=== PATIENT | male | born 1960 | race American Indian/Alaskan Native ===

== ENCOUNTER 2017-08-01 14:05 | Observation (INO) | payer OTHER ==
[2017-08-01 15:34] LABS: BASO % 0.8 % (0.0-2.0); EOS # 0.1 K/uL (0.0-0.7); EOS % 1.1 % (0.0-4.0); HEMATOCRIT 45.2 % (35.0-51.0); LYMPH # 1.5 K/uL (1.0-4.3); MEAN CELL VOLUME 71.2 fL (80.0-94.0); MEAN CORPUSCULAR HEMOGLOBIN 22.9 pg (27.0-31.0); MEAN CORPUSCULAR HGB CONC 32.1 g/dL (33.0-37.0); MEAN PLATELET VOLUME 8.1 fL (7.2-11.7); MONO # 0.6 K/uL (0.0-0.8); MONO % 9.8 % (0.0-10.0); NRBC % 0.1 % (0.0-2.0); RED CELL DISTRIBUTION WIDTH 14.5 % (11.5-14.5); WHITE BLOOD COUNT 5.7 K/uL (4.8-10.8)
--- NOTE | 2017-08-01 15:52 | C.PDOC ---
History Of Present Illness 56 y/o male, with history of diabetes, presents to the ER complaining of chest pressure and elevated blood pressure.Patient states he woke up with a headache on Jul 20, 2017 and he went to his PCP, Dr. Larsen. He had extremely elevated blood pressure so he called for an ambulance and went to [facility]. Patient states that they did bloodwork and they gave him some medications. The medications made him feel better and he was discharged with oral medications. He states that he did not feel completely better after taking the medications. On Jul 27, 2017, he called for the ambulance and went to [facility] again. They gave him some medications but he still felt a headache and had high blood pressure. He started feeling chest pressure so he decided to come to the ER. Time Seen by Provider: 08/01/17 14:14 Chief Complaint (Nursing): High Blood Pressure History Per: Patient History/Exam Limitations: no limitations Onset/Duration Of Symptoms: Days Current Symptoms Are (Timing): Still Present Associated Symptoms: Chest Pain (chest pressure), Headache Past Medical History Reviewed: Historical Data, Nursing Documentation, Vital Signs Vital Signs: Last Vital Signs Temp 97.5 F L 08/01/17 20:27 Pulse 76 08/01/17 20:59 Resp 20 08/01/17 20:27 BP 183/96 H 08/01/17 20:27 Pulse Ox 98 08/01/17 21:14 - Medical History PMH: HTN Surgical History: No Surg Hx Family History: States: No Known Family Hx - Social History Hx Alcohol Use: No Hx Substance Use: No - Immunization History Hx Tetanus Toxoid Vaccination: No Hx Influenza Vaccination: No Hx Pneumococcal Vaccination: No Review Of Systems Except As Marked, All Systems Reviewed And Found Negative. Cardiovascular: Positive for: Chest Pain (chest pressure) Neurological: Positive for: Headache Physical Exam - Physical Exam Appears: Other (uncomfortable) Skin: Normal Color, Warm Eye(s): bilateral: Normal Inspection Nose: Normal Oral Mucosa: Moist Neck: Supple Chest: Symmetrical Cardiovascular: Rhythm Regular Respiratory: Normal Breath Sounds Neurological/Psych: Oriented x3, Normal Speech, Normal Cognition ED Course And Treatment - Laboratory Results Result Diagrams: 08/01/17 20:02 08/01/17 15:30 ECG Rhythm: Sinus Rhythm, Nonspecific Changes Interpretation Of ECG: LVH Rate From EC O2 Sat by Pulse Oximetry: 98 (RA) Pulse Ox Interpretation: Normal - Radiology CXR Interpretation: Yes: Other - Other Rad No standard instances X-Ray: Interpreted by Me, Viewed By Me Interpretation: PROCEDURE: CHEST RADIOGRAPH, 1 VIEW. HISTORY: uncontrolled HTN, ZAPATA, Chest discomfort. COMPARISON: None available. FINDINGS: LUNGS: Clear. PLEURA: No pneumothorax or pleural fluid seen. CARDIOVASCULAR: Top- normal heart size. Mildly ectatic thoracic aorta. OSSEOUS STRUCTURES: Left humeral head orthopedic anchor. VISUALIZED UPPER ABDOMEN: Normal. OTHER FINDINGS: None. IMPRESSION: No consolidation or jackelyn pulmonary venous congestion. No effusion. Slight prominence of the ascending aorta/unfolding - can be seen with hypertension. No comparison studies available - CT Scan/US No standard instances Other Rad Studies (CT/US): Interpreted By Me CT/US Interpretation: PROCEDURE: CT HEAD WITHOUT CONTRAST. HISTORY: Uncontrolled HTN, ZAPATA. COMPARISON: 07/19/2011. TECHNIQUE: Axial computed tomography images were obtained through the head/brain without intravenous contrast. Radiation dose: Total exam DLP = 792.75 mGy-cm. This CT exam was performed using one or more of the following dose reduction techniques: Automated exposure control, adjustment of the mA and/or kV according to patient size, and/or use of iterative reconstruction technique. FINDINGS: HEMORRHAGE: No intracranial hemorrhage. BRAIN: Guerrero-white matter differentiation is preserved. There is no mass, mass effect or abnormal extra-axial fluid collection. VENTRICLES: The ventricles are normal in size, shape and configuration. CALVARIUM: The skull base and calvarium are normal. PARANASAL SINUSES: Predominantly clear. MASTOID AIR CELLS: Predominantly clear. OTHER FINDINGS: None. IMPRESSION: No acute intracranial abnormality. Progress Note: Patient was treated with Hydralazine IV with improvement. Percocet was given for pain. CT head - neg. case was d/w who accepted patient to [facility] for observation. 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 - Scribe Statement The provider has reviewed the documentation as recorded by the Scribe Summcoreen Malcolm Provider Attestation All medical record entries made by the Dorothea were at my direction and personally dictated by me. I have reviewed the chart and agree that the record accurately reflects my personal performance of the history, physical exam, medical decision making, and the department course for this patient. I have also personally directed, reviewed, and agree with the discharge instructions and disposition. Decision To Admit - Pt Status Changed To: Hospital Disposition Of: Observation - . Bed Request Type: Telemetry Admitting Physician: Meagan Larsen Patient Diagnosis: Hypertensive urgency, Headache, Chest pain
[2017-08-01 15:56] LABS: ALKALINE PHOSPHATASE 55 U/L (38-126); ALT/SGPT 28 U/L (21-72); AST/SGOT 21 U/L (17-59); BLOOD UREA NITROGEN 14 mg/dL (9-20); CALCIUM 8.5 mg/dl (8.6-10.4); CARBON DIOXIDE 26 mmol/L (22-30); CHLORIDE 99 mmol/L (98-107); GFR AFRICAN-AMERICAN > 60; GLUCOSE,RANDOM 132 mg/dL (75-110); POTASSIUM 3.7 mmol/L (3.6-5.2); SODIUM 135 mmol/L (132-148); TOTAL PROTEIN 7.7 g/dL (6.3-8.3)
--- NOTE | 2017-08-01 15:56 | RAD ---
PROCEDURE: CHEST RADIOGRAPH, 1 VIEW HISTORY: uncontrolled HTN, ZAPATA, Chest discomfort COMPARISON: None available. FINDINGS: LUNGS: Clear. PLEURA: No pneumothorax or pleural fluid seen. CARDIOVASCULAR: Top-normal heart size. Mildly ectatic thoracic aorta OSSEOUS STRUCTURES: Left humeral head orthopedic anchor VISUALIZED UPPER ABDOMEN: Normal. OTHER FINDINGS: None. IMPRESSION: No consolidation or jackelyn pulmonary venous congestion. No effusion Slight prominence of the ascending aorta/unfolding -can be seen with hypertension. No comparison studies available
[2017-08-01] MEDS ORDERED: Enalaprilat 2.5 MG/2 ML IV STA (16:18)
--- NOTE | 2017-08-01 16:21 | CT ---
PROCEDURE: CT HEAD WITHOUT CONTRAST. HISTORY: Uncontrolled HTN, ZAPATA COMPARISON: 07/19/2011. TECHNIQUE: Axial computed tomography images were obtained through the head/brain without intravenous contrast. Radiation dose: Total exam DLP = 792.75 mGy-cm. This CT exam was performed using one or more of the following dose reduction techniques: Automated exposure control, adjustment of the mA and/or kV according to patient size, and/or use of iterative reconstruction technique. FINDINGS: HEMORRHAGE: No intracranial hemorrhage. BRAIN: Guerrero-white matter differentiation is preserved. There is no mass, mass effect or abnormal extra-axial fluid collection. VENTRICLES: The ventricles are normal in size, shape and configuration. CALVARIUM: The skull base and calvarium are normal. PARANASAL SINUSES: Predominantly clear. MASTOID AIR CELLS: Predominantly clear. OTHER FINDINGS: None. IMPRESSION: No acute intracranial abnormality.
[2017-08-01] MEDS ORDERED: Enalaprilat 2.5 MG/2 ML ONE (16:41)
[2017-08-01] MEDS ORDERED: Enoxaparin 40 mg Syringe SC ONE (17:05)
--- NOTE | 2017-08-01 17:15 | CP.PCM.PN ---
Subjective - Date & Time of Evaluation Date of Evaluation: 08/01/17 Time of Evaluation: 16:40 - Subjective Subjective: PGY-[address] Larsen 56 year old male with PMHx of HTN, DM, and HLD presents to the ED concerning of uncontrolled high blood pressure, headache and chest pressure. Patient initially found to have headache and uncontrolled SBP of 200 at his PMD 2 weeks ago. Patient was then immediately brought to [facility] ED. Patient was discharged home after treated with medications. However, patient's symptoms returned again last Saturday where he returned to [facility]. Patient was once again discharged home on the same day. Patient woke up with the same symptoms today which prompted him to come to [facility] ED today. Patient states he is compliant with all his medications but he does not remember the names of them. Patient has been adhere to low sugar, low sodium diet for many years. Patient admits to have vision changes and dizziness associated with the headache. He denies having fever, chills, shortness of breath, abdominal pain, nausea, vomiting, or diarrhea. PMD: Dr. Larsen PMHx: HTN, DM, HLD PSHx: none Allergy: NKDA Social Hx: denies tobacco, alcohol and other drug use Family Hx: Hypertension both parents Home meds: see MAR Objective - Vital Signs/Intake and Output Vital Signs (last 24 hours): Temp Pulse Resp BP Pulse Ox 98.0 F 91 H 18 169/87 H 98 08/01/17 15:45 08/01/17 15:45 08/01/17 15:45 08/01/17 16:55 08/01/17 16:33 - Medications Medications: Current Medications Acetaminophen (Tylenol 325mg Tab) 650 mg PO Q6 PRN PRN Reason: Pain, Mild (1-3) Hydralazine HCl (Apresoline) 50 mg PO Q8 [facility] Insulin Aspart (Novolog) 0 unit SC ACHS [facility] PRN Reason: Protocol Losartan Potassium (Cozaar) 100 mg PO DAILY [facility] Metformin HCl (Glucophage) 1,000 mg PO BID [facility] Pantoprazole Sodium (Protonix Ec Tab) 40 mg PO DAILY [facility] Rosuvastatin Calcium (Crestor) 10 mg PO HS [facility] Sitagliptin Phosphate (Januvia) 50 mg PO BID [facility] - Labs Labs: 08/01/17 15:30 08/01/17 15:30 PT 11.2 SECONDS (9.7-12.2) 08/01/17 15:30 INR 1.0 08/01/17 15:30 APTT 30 SECONDS (21-34) 08/01/17 15:30 - Constitutional Appears: Non-toxic, No Acute Distress - Head Exam Head Exam: ATRAUMATIC, NORMOCEPHALIC - Eye Exam Eye Exam: EOMI, Normal appearance - ENT Exam ENT Exam: Mucous Membranes Moist - Neck Exam Neck Exam: Normal Inspection - Respiratory Exam Respiratory Exam: Clear to Ausculation Bilateral, NORMAL BREATHING PATTERN. absent: Respiratory Distress - Cardiovascular Exam Cardiovascular Exam: Tachycardia, +S1, +S2 - GI/Abdominal Exam GI & Abdominal Exam: Soft, Normal Bowel Sounds. absent: Bruit, Tenderness, Hernia - Extremities Exam Extremities Exam: Full ROM, Normal Capillary Refill, Normal Inspection. absent : Joint Swelling, Pedal Edema - Neurological Exam Neurological Exam: Alert, Awake, Oriented x3 - Psychiatric Exam Psychiatric exam: Normal Affect, Normal Mood - Skin Skin Exam: Dry, Intact, Normal Color, Warm Assessment and Plan - Assessment and Plan (Free Text) Assessment: Hypertension Urgency -Telemetry -continue Cozaar 100mg po -continue Hydralazine 50mg po Q8h -Labetalol 20mg IV Q6 PRN -Continue to monitor Chest pain, resolved -AURELIA negative x1, repeats pending -Sinus rhythm @81bpm, LVH and some T-wave inversions, follow up repeat -CXR showed No consolidation or jackelyn pulmonary venous congestion. No effusion. Slight prominence of the ascending aorta/unfolding -can be seen with hypertension. No comparison studies available (see full report) -ASA 81mg Headache -Likely secondary to uncontrolled BP/HTN urgency -CT head-No acute intracranial abnormalities -Tylenol PRN Diabetes -continue Metformin 1000mg po BID -continue Januvia 50mg po BID -ISS -CC diet -Follow up A1C Hyperlipidemia -continue Crestor 10mg -Follow up lipid panel Prophylactic measures -Lovenox -Protonix
[2017-08-01] MEDS ORDERED: Labetalol 25mg/5ml Syringe IVP PRN (17:34)
[2017-08-01] MEDS ORDERED: Oxycodone/Acetaminophen 5/325 mg Tab PO STA (19:16)
[2017-08-01] MEDS ORDERED: Oxycodone/Acetaminophen 5/325 mg Tab ONE (19:26)
[2017-08-01] MEDS ORDERED: Enoxaparin 40 mg Syringe ONE (19:27)
[2017-08-01 20:15] LABS: BASO # 0.1 K/uL (0.0-0.2); BASO % 0.9 % (0.0-2.0); EOS # 0.1 K/uL (0.0-0.7); EOS % 1.8 % (0.0-4.0); HEMATOCRIT 46.2 % (35.0-51.0); LYMPH # 1.9 K/uL (1.0-4.3); LYMPH % 32.1 % (20.0-40.0); MEAN CELL VOLUME 71.1 fL (80.0-94.0); MEAN CORPUSCULAR HEMOGLOBIN 22.5 pg (27.0-31.0); MEAN CORPUSCULAR HGB CONC 31.6 g/dL (33.0-37.0); MONO # 0.6 K/uL (0.0-0.8); MONO % 10.1 % (0.0-10.0); NRBC % 0.1 % (0.0-2.0); RED CELL DISTRIBUTION WIDTH 14.6 % (11.5-14.5)
[2017-08-01 20:18] LABS: CHOLESTEROL 134 mg/dL (0-199)
[2017-08-01 20:29] VITALS: RESP 20
[2017-08-01 23:02] LABS: RBC URINE < 1 /hpf (0-3); TRANSITIONAL EPITHIAL < 1 /hpf (0-3); URINE BACTERIA RARE (<OCC); URINE BILIRUBIN NEGATIVE (NEGATIVE); URINE BLOOD NEGATIVE (NEGATIVE); URINE COLOR Yellow (YELLOW); URINE GLUCOSE (UA) 1+ mg/dL (Normal); URINE KETONE 1+ mg/dL (NEGATIVE); URINE LEUKOCYTE ESTERASE NEG Leu/uL (Negative); URINE PROTEIN NEGATIVE (NEGATIVE); URINE UROBILINOGEN NORMAL mg/dL (0.2-1.0); WBC URINE 1 /hpf (0-5)
[2017-08-01] MEDS: (Novolog) Insulin Aspart, Recombinant 100 u/ml 10 ml vial SC SCH (23:26)
[2017-08-02 01:36] VITALS: O2SAT 97
[2017-08-02 04:21] LABS: ALB/GLOB RATIO 1.4 (1.0-2.1); ALKALINE PHOSPHATASE 51 U/L (38-126); ALT/SGPT 18 U/L (21-72); AST/SGOT 21 U/L (17-59); BILIRUBIN,TOTAL 1.1 mg/dL (0.2-1.3); BLOOD UREA NITROGEN 15 mg/dL (9-20); CALCIUM 8.3 mg/dl (8.6-10.4); CARBON DIOXIDE 25 mmol/L (22-30); CHLORIDE 103 mmol/L (98-107); GFR AFRICAN-AMERICAN > 60; GLUCOSE,RANDOM 125 mg/dL (75-110); POTASSIUM 3.8 mmol/L (3.6-5.2); SODIUM 136 mmol/L (132-148)
[2017-08-02] MEDS: (Novolog) Insulin Aspart, Recombinant 100 u/ml 10 ml vial SC SCH ×2 (07:53→12:07)
[2017-08-02 08:27] VITALS: BP 143/79; PULSE 91; TEMP 98.2
--- NOTE | 2017-08-02 09:44 | CP.PCM.PN ---
Subjective - Date & Time of Evaluation Date of Evaluation: 08/02/17 Time of Evaluation: 07:25 - Subjective Subjective: PGY-[address] Larsen Patient seen and examined at bedside. No acute events overnight. Patient reports his headache and chest discomfort resolved. He denies having vision changes, photosensitivity, fever, chills, shortness of breath, chest pain, abdominal pain, or urinary symptoms. Objective - Vital Signs/Intake and Output Vital Signs (last 24 hours): Temp Pulse Resp BP Pulse Ox 98.2 F 91 H 20 143/79 97 08/02/17 07:00 08/02/17 07:00 08/02/17 07:00 08/02/17 07:00 08/02/17 07:00 Intake and Output: 08/02/17 08/02/17 06:59 18:59 Output Total 200 Balance -200 - Medications Medications: Current Medications Acetaminophen (Tylenol 325mg Tab) 650 mg PO Q6 PRN PRN Reason: Pain, Mild (1-3) Last Admin: 08/02/17 08:50 Dose: 650 mg Aspirin (Aspirin Chewable) 81 mg PO DAILY [facility] Enoxaparin Sodium (Lovenox) 40 mg SC DAILY [facility] Hydralazine HCl (Apresoline) 50 mg PO Q8 [facility] Last Admin: 08/02/17 05:36 Dose: 50 mg Insulin Aspart (Novolog) 0 unit SC ACHS [facility] PRN Reason: Protocol Last Admin: 08/02/17 07:53 Dose: Not Given Labetalol HCl (Trandate) 20 mg IVP Q6 PRN PRN Reason: Systolic Blood Pressure Losartan Potassium (Cozaar) 100 mg PO DAILY [facility] Metformin HCl (Glucophage) 1,000 mg PO BID [facility] Last Admin: 08/01/17 19:31 Dose: 1,000 mg Pantoprazole Sodium (Protonix Ec Tab) 40 mg PO DAILY [facility] Pneumococcal Polyvalent Vaccine (Pneumovax 23 Vaccine) 0.5 ml IM .ONCE ONE Stop: 08/03/17 10:01 Rosuvastatin Calcium (Crestor) 10 mg PO HS [facility] Last Admin: 08/01/17 21:24 Dose: 10 mg Sitagliptin Phosphate (Januvia) 50 mg PO BID [facility] Last Admin: 08/01/17 19:31 Dose: 50 mg - Labs Labs: 08/01/17 20:02 08/02/17 03:42 PT 11.2 SECONDS (9.7-12.2) 08/01/17 15:30 INR 1.0 08/01/17 15:30 APTT 30 SECONDS (21-34) 08/01/17 15:30 - Constitutional Appears: Non-toxic, No Acute Distress - Head Exam Head Exam: ATRAUMATIC, NORMOCEPHALIC - Eye Exam Eye Exam: Normal appearance - ENT Exam ENT Exam: Mucous Membranes Moist - Neck Exam Neck Exam: Normal Inspection - Respiratory Exam Respiratory Exam: Clear to Ausculation Bilateral, NORMAL BREATHING PATTERN. absent: Respiratory Distress - Cardiovascular Exam Cardiovascular Exam: REGULAR RHYTHM, +S1, +S2. absent: Murmur - GI/Abdominal Exam GI & Abdominal Exam: Soft, Normal Bowel Sounds - Extremities Exam Extremities Exam: Full ROM, Normal Capillary Refill, Normal Inspection. absent : Joint Swelling, Pedal Edema - Neurological Exam Neurological Exam: Alert, Awake, Oriented x3 - Psychiatric Exam Psychiatric exam: Normal Affect, Normal Mood - Skin Skin Exam: Dry, Normal Color, Warm Assessment and Plan - Assessment and Plan (Free Text) Assessment: Hypertension Urgency -Stable at SBP 140s overnight -Telemetry -continue Cozaar 100mg po -continue Hydralazine 50mg po Q8h -Labetalol 20mg IV Q6 PRN -Start Norvasc 5mg po on discharge -Patient educated on low salt diet, exercise Chest pain, resolved -AURELIA negative x3 -No change in repeat EKG -CXR showed No consolidation or jackelyn pulmonary venous congestion. No effusion. Slight prominence of the ascending aorta/unfolding -can be seen with hypertension. No comparison studies available (see full report) -ASA 81mg Headache, resolved -Likely secondary to uncontrolled BP/HTN urgency -CT head-No acute intracranial abnormalities -Tylenol PRN Diabetes -continue Metformin 1000mg po BID -continue Januvia 50mg po BID -ISS -CC diet -Educated patient on better glycemic control and lifestyle modifications -A1C 10.5 patient may need to start insulin as outpatient Hyperlipidemia -continue Crestor 10mg -Lpid panel unremarkable Prophylactic measures -Lovenox -Protonix Patient to be discharge home Management per Dr. Larsen
[2017-08-02] MEDS ORDERED: Enoxaparin 40 mg Syringe SC SCH (10:00)
[2017-08-02] MEDS ORDERED: Pantoprazole 40 mg EC Tab PO SCH (10:00)
[2017-08-02] MEDS: Influenza Vaccine 60 mcg/0.5 mL SYR (4YR UP) IM ONE ×2 (12:31→13:08)
[2017-08-02] MEDS ORDERED: Pneumococcal 23-Valent Vaccine IM ONE (12:37)
--- NOTE | 2017-08-02 18:35 | CARD ---
APPROVED REPORT EKG Measurement Heart [id number] CT 154P30 [id number] <Conclusion> Normal sinus rhythm Voltage criteria for left ventricular hypertrophy Cannot rule out Septal infarct, age undetermined Anterior ST elevation, Pericarditis vs early repolarization vs Injury pattern Abnormal ECG
[2017-08-03] MEDS ORDERED: Pneumococcal 23-Valent Vaccine IM ONE (10:00)
== END 2017-08-02 14:05 | disposition home or self-care (01) ==
LOC: C.ER 14:05 → C.9E 17:07 → C.6T 19:12
PROVIDERS: ADMIT Internal Medicine Pulmonary Disease; ATTEND Internal Medicine Pulmonary Disease
DX: I10 Essential (primary) hypertension (principal); I16.0 Hypertensive urgency; R51 Headache; R07.89 Other chest pain; E11.9 Type 2 diabetes mellitus without complications; E78.5 Hyperlipidemia, unspecified
CPT/HCPCS: 36415; 70450; 71010; 80053; 80061; 81001; 82550; 82553; 82948; 83036; 84484; 85025; 85610; 85730; 90471; 90674; 93005; 96372; 96374; 99285; G0378; J0360; J1650

== ENCOUNTER 2017-11-17 03:49 | Emergency (ER) | payer OTHER ==
[2017-11-17] MEDS ORDERED: Labetalol 25mg/5ml Syringe IVP STA (04:27)
--- NOTE | 2017-11-17 04:27 | C.PDOC ---
History Of Present Illness 57 year old male with a PMHx of hypertension presents to the ED via EMS after he developed shakes and chills at home this morning. Patient then noticed his blood pressure was elevated. He did not take his morning medications yet. Patient also complains of a headache. No nausea, vomiting, dizziness, visual changes, or other complaints. Time Seen by Provider: 11/17/17 04:13 Chief Complaint (Nursing): Headache History Per: Patient History/Exam Limitations: no limitations Onset/Duration Of Symptoms: Hrs Current Symptoms Are (Timing): Still Present Past Medical History Reviewed: Historical Data, Nursing Documentation, Vital Signs Vital Signs: Last Vital Signs Temp 99.9 F H 11/17/17 03:55 Pulse 101 H 11/17/17 05:07 Resp 20 11/17/17 05:07 BP 168/84 H 11/17/17 05:07 Pulse Ox 97 11/17/17 05:56 - Medical History PMH: HTN, Hypercholesterolemia Denies: Chronic Kidney Disease Other Surgeries: Left shoulder surgery Family History: States: No Known Family Hx - Social History Hx Tobacco Use: No Hx Alcohol Use: No Hx Substance Use: No - Immunization History Hx Tetanus Toxoid Vaccination: No Hx Influenza Vaccination: No Hx Pneumococcal Vaccination: No Review Of Systems Except As Marked, All Systems Reviewed And Found Negative. Constitutional: Positive for: Chills (and shakes) Eyes: Negative for: Vision Change Gastrointestinal: Negative for: Nausea, Vomiting Neurological: Positive for: Headache. Negative for: Weakness, Numbness, Dizziness Physical Exam - Physical Exam Appears: No Acute Distress, Other (Black male, Anxious appearing, Afebrile) Skin: Warm, Dry Head: Atraumatic, Normacephalic Eye(s): bilateral: Normal Inspection, PERRL, EOMI Nose: Normal Oral Mucosa: Moist Neck: Normal ROM, No Midline Cervical Tenderness, No Paracervical Tenderness, Supple Chest: Symmetrical Cardiovascular: Rhythm Regular, No Murmur Respiratory: Normal Breath Sounds, No Accessory Muscle Use, No Rhonchi, No Wheezing Gastrointestinal/Abdominal: Soft, No Tenderness, No Distention Back: Normal Inspection, No Vertebral Tenderness Extremity: Bilateral: Atraumatic, Normal Color And Temperature, Normal ROM Neurological/Psych: Oriented x3, Normal Speech, Normal Cranial Nerves, Normal Motor, Normal Sensation, No Other (focal deficits) Gait: Steady ED Course And Treatment - Laboratory Results Result Diagrams: 11/17/17 04:41 11/17/17 04:41 Lab Interpretation: Normal (urinalysis neg.) ECG: Interpreted By Me ECG Rhythm: Sinus Rhythm, Sinus Tachycardia ECG Interpretation: Abnormal Rate From EC O2 Sat by Pulse Oximetry: 97 (NC) Pulse Ox Interpretation: Normal - Radiology CXR: Interpreted by Me CXR Interpretation: Yes: No Acute Disease - CT Scan/US CT Head Other Rad Studies (CT/US): Read By Radiologist, Radiology Report Reviewed CT/US Interpretation: IMPRESSION: No evidence of an acute intracranial hemorrhage, midline shift or mass effect is identified. Thank you for allowing us to participate in the care of your patient. Dictated and Authenticated by: Yamileth Schuster MD. 11/17/2017 5:28 AM Eastern Time ([place] & [place]) Reevaluation Time: 06:19 Reassessment Condition: Improved Medical Decision Making Medical Decision Making: Time: 4:27 Initial Plan: * EKG * Chest x-ray * Labs * Labetalol 20 mg IV * Tylenol 975 mg PO * Amlodipine 10 mg PO * CT Head w/o contrast early AM HTN, improved w HTN meds no fevers, no shaking/rigors noted ? anxiety Disposition Doctor Will See Patient In The: Office Counseled Patient/Family Regarding: Studies Performed, Diagnosis - Disposition Disposition: HOME/ ROUTINE Disposition Time: 06:20 Condition: GOOD Forms: [facility] (Turkmen) - Clinical Impression Clinical Impression: Hypertension - Scribe Statement The provider has reviewed the documentation as recorded by the Dorothea Bal Provider Attestation: All medical record entries made by the Dorothea were at my direction and personally dictated by me. I have reviewed the chart and agree that the record accurately reflects my personal performance of the history, physical exam, medical decision making, and the department course for this patient. I have also personally directed, reviewed, and agree with the discharge instructions and disposition.
[2017-11-17] MEDS ORDERED: Labetalol 25mg/5ml Syringe ONE (04:35)
[2017-11-17 04:44] LABS: BASO % 0.4 % (0.0-2.0); EOS % 0.1 % (0.0-4.0); HEMOGLOBIN 13.1 g/dL (12.0-18.0); LYMPH # 0.8 K/uL (1.0-4.3); MEAN CORPUSCULAR HEMOGLOBIN 22.7 pg (27.0-31.0); MEAN CORPUSCULAR HGB CONC 31.9 g/dL (33.0-37.0); MEAN PLATELET VOLUME 8.5 fL (7.2-11.7); MONO # 0.5 K/uL (0.0-0.8); MONO % 8.3 % (0.0-10.0); NEUT # 4.5 K/uL (1.8-7.0); NEUT % 77.2 % (50.0-75.0); NRBC % 0.1 % (0.0-2.0); RBC 5.77 Mil/uL (4.40-5.90); RED CELL DISTRIBUTION WIDTH 15.3 % (11.5-14.5); WHITE BLOOD COUNT 5.9 K/uL (4.8-10.8)
[2017-11-17 04:48] LABS: INR 1.1; PROTHROMBIN TIME 11.8 SECONDS (9.7-12.2)
[2017-11-17 05:04] LABS: LDL CHOLESTEROL 83 mg/dL (0-129)
[2017-11-17 05:08] VITALS: RESP 20
--- NOTE | 2017-11-17 05:28 | CT ---
EXAM: CT Head Without Intravenous Contrast CLINICAL HISTORY: 57 years old, male; Signs and symptoms; Other: Shaking; Additional info: HTN, shaking, hypertensive urgency TECHNIQUE: Axial computed tomography images of the head/brain without intravenous contrast. All CT scans at this facility use one or more dose reduction techniques, viz.: automated exposure control; ma/kV adjustment per patient size (including targeted exams where dose is matched to indication; i.e. head); or iterative reconstruction technique. 355 images are submitted.Sagittal , axial and coronal MPR reformatted images are submitted. COMPARISON: No relevant prior studies available. FINDINGS: Brain: Unremarkable. No hemorrhage. No significant white matter disease. No edema. Ventricles: Unremarkable. No ventriculomegaly. Bones/joints: Unremarkable. No acute fracture. Soft tissues: Unremarkable. Sinuses: Unremarkable. No acute sinusitis. Mastoid air cells: Unremarkable. No mastoid effusion. Orbits: The globe and lens are intact. IMPRESSION: No evidence of an acute intracranial hemorrhage, midline shift or mass effect is identified.
[2017-11-17 05:40] LABS: ALB/GLOB RATIO 1.1 (1.0-2.1); ALBUMIN 3.8 g/dL (3.5-5.0); ALT/SGPT 89 U/L (21-72); AST/SGOT 91 U/L (17-59); BLOOD UREA NITROGEN 17 mg/dL (9-20); CALCIUM 8.9 mg/dl (8.6-10.4); GFR AFRICAN-AMERICAN > 60; GFR NON-AFRICAN AMERICAN > 60; HDL CHOLESTEROL 41 mg/dL (30-70)
[2017-11-17 05:56] LABS: SQUAMOUS EPITHIAL < 1 /hpf (0-5); URINE BILIRUBIN NEGATIVE (NEGATIVE); URINE BLOOD 1+ (NEGATIVE); URINE CLARITY Clear (Clear); URINE COLOR Yellow (YELLOW); URINE GLUCOSE (UA) 2+ mg/dL (Normal); URINE LEUKOCYTE ESTERASE NEG Leu/uL (Negative); URINE PROTEIN 1+ mg/dL (NEGATIVE); URINE UROBILINOGEN NORMAL mg/dL (0.2-1.0)
[2017-11-17 06:34] VITALS: BP 164/77; PULSE 99; TEMP 98.6; O2SAT 98
--- NOTE | 2017-11-17 08:08 | RAD ---
Chest x-ray single frontal view History: Fever. Comparison: 08/01/2017 Findings: Mild venous congestion. Right hilar prominence. Biapical pleural thickening with upper lobe granulomatous changes. Tortuous ectatic aorta. Degenerative changes in the spine. Suture anchors in the left proximal humerus. Impression: Mild venous congestion. Right hilar prominence. Biapical pleural thickening with upper lobe granulomatous changes. Tortuous ectatic aorta. Degenerative changes in the spine. Suture anchors in the left proximal humerus.
--- NOTE | 2017-11-19 19:31 | CARD ---
APPROVED REPORT EKG Measurement Heart [id number] [id number] <Conclusion> Sinus tachycardia Otherwise normal ECG
== END 2017-11-17 06:34 | disposition home or self-care (01) ==
LOC: C.ER 03:49
DX: I10 Essential (primary) hypertension (principal); E78.00 Pure hypercholesterolemia, unspecified

== ENCOUNTER 2018-04-01 15:30 | Emergency (ER) | payer OTHER ==
[2018-04-01 15:51] VITALS: O2SAT 98
[2018-04-01] MEDS ORDERED: Sodium Chloride 0.9% 1,000 ML IV ONE (17:29)
--- NOTE | 2018-04-01 17:33 | C.PDOC ---
History Of Present Illness 57 year old male patient with hx of DM, HTN and HLD presents to the ER with c/o left leg pain for x2 weeks. Patient reports pain started after he came back from his trip to [facility] and has gotten worse every day. Patient denies fever, chills and trauma. Chief Complaint (Nursing): Lower Extremity Problem/Injury History Per: Patient History/Exam Limitations: no limitations Onset/Duration Of Symptoms: Days (x2 weeks) Current Symptoms Are (Timing): Worse Past Medical History Reviewed: Historical Data, Nursing Documentation, Vital Signs Vital Signs: Last Vital Signs Temp 98.8 F 04/01/18 18:24 Pulse 78 04/01/18 18:24 Resp 16 04/01/18 18:24 BP 135/78 04/01/18 18:24 Pulse Ox 98 04/04/18 12:21 - Medical History PMH: HTN, Hypercholesterolemia Family History: States: No Known Family Hx - Social History Hx Tobacco Use: No Hx Alcohol Use: No Hx Substance Use: No - Immunization History Hx Tetanus Toxoid Vaccination: No Hx Influenza Vaccination: No Hx Pneumococcal Vaccination: No Review Of Systems Except As Marked, All Systems Reviewed And Found Negative. Constitutional: Negative for: Fever, Chills, Other (trauma) Musculoskeletal: Positive for: Leg Pain (left) Physical Exam - Physical Exam Appears: Well, Non-toxic, No Acute Distress Skin: Normal Color, Warm, Dry Head: Atraumatic, Normacephalic Eye(s): bilateral: Normal Inspection Oral Mucosa: Moist Throat: Normal Neck: Normal ROM, Supple Chest: Symmetrical, No Deformity Cardiovascular: Rhythm Regular Respiratory: Normal Breath Sounds Gastrointestinal/Abdominal: Soft, No Tenderness Extremity: Normal ROM (x4), Tenderness (Distal of thigh along knee ), Calf Tenderness (medial ), Capillary Refill (<2 sec), No Deformity, Other (hardening of medial aspect of thigh) Pulses: Left Dorsalis Pedis: Normal, Right Dorsalis Pedis: Normal Neurological/Psych: Oriented x3, Normal Speech, Normal Motor, Normal Sensation Gait: Steady ED Course And Treatment - Laboratory Results Result Diagrams: 04/01/18 17:59 04/01/18 17:59 O2 Sat by Pulse Oximetry: 98 (RA) Pulse Ox Interpretation: Normal - Other Rad CXR X-Ray: Read By Radiologist Interpretation: Accession No. : [id number]. Patient Name / ID : JEAN MCKEON / [id number]. Exam Date : 11/17/2017 05:24:57 ( Approved ). Study Comment : Sex / Age : M / 57Y. Creator : Bakari Manley. Dictator : Neo Miller MD. Industrial Relations Representative : Benefits Representative : Neo Miller MD. Approver2 : Report Date : 11/17/2017 05:31:11. My Comment : . Chest x-ray single frontal view. History: Fever. Comparison: 08/01/2017. Findings: Mild venous congestion. Right hilar prominence. Biapical pleural thickening with upper lobe granulomatous changes. Tortuous ectatic aorta. Degenerative changes in the spine. Suture anchors in the left proximal humerus. Impression: Mild venous congestion. Right hilar prominence. Biapical pleural thickening with upper lobe granulomatous changes. Tortuous ectatic aorta. Degenerative changes in the spine. Suture anchors in the left proximal humerus. - CT Scan/US Head CT Other Rad Studies (CT/US): Read By Radiologist, Radiology Report Reviewed CT/US Interpretation: Accession No. : [id number]. Patient Name / ID : JEAN MCKEON / [id number]. Exam Date : 11/17/2017 05:00:23 ( Approved ). Study Comment : Sex / Age : M / 57Y. Creator : GIL THOMASON. Dictator : Industrial Relations Representative : Benefits Representative : GIL THOMASON. Approver2 : Report Date : 11/17 05:28:00. My Comment : . [facility]. [facility] Division of Radiology. [address] [facility] [address]. Tel. no. [phone]. . . Patient Name: LINDA PENA . Pt. Address: [address] [place] [address]. Rec #: [id number]. [place] [address]: Abraham Reich MD Pt Order Location: [facility] : 1960 Male Age: 57 Order #: [id number]. Reason for exam: HTN, shaking, hypertensive urgency. . . . . . CT Scan. . . HEAD W/O CONTRAST Exam Date: 11/17/17. . This imaging exam was performed at [facility]. EXAM: CT Head Without Intravenous Contrast. . CLINICAL HISTORY: 57 years old, male; Signs and symptoms; Other: Shaking; Additional info: HTN,. shaking, hypertensive urgency. . TECHNIQUE: Axial computed tomography images of the head/brain without intravenous. contrast. All CT scans at this facility use one or more dose reduction. techniques, viz.: automated exposure control; ma/ kV adjustment per patient size. (including targeted exams where dose is matched to indication; i.e. head); or. iterative reconstruction technique. 355 images are submitted.Sagittal , axial. and coronal MPR reformatted images are submitted. . COMPARISON: No relevant prior studies available. . FINDINGS: Brain: Unremarkable. No hemorrhage. No significant white matter disease. No edema. Ventricles: Unremarkable. No ventriculomegaly. Bones/ joints: Unremarkable. No acute fracture. Soft tissues: Unremarkable. Sinuses: Unremarkable. No acute sinusitis. Mastoid air cells: Unremarkable. No mastoid effusion. Orbits: The globe and lens are intact. . IMPRESSION: No evidence of an acute intracranial hemorrhage, midline shift or mass effect. is identified. . Dictated By: GIL THOMASON. Dictated Date/Time: 11/17/17527. Signed By: GIL THOMASON MD. Date Signed: 11/17/17527. Transcribed By: [facility]. Transcribe Date/Time: 11/17/1728. LARON/ELI Medical Decision Making Medical Decision Making: Impression: left leg pain r/o DVT Plans: -- blood work -- IV fluids -- Toradol -- Venous duplex scan Reassess: Patient is resting comfortably. Tolerating medication. Results was discussed with patient. Patient will be discharged today and instructed to come back tomorrow morning to the ER for further testing. Disposition - Disposition Disposition: HOME/ ROUTINE Disposition Time: 19:00 Condition: GOOD Additional Instructions: Please return to the ED tomorrow morning for a Lower Extremity Duplex. Take Motrin for pain as directed. Prescriptions: Ibuprofen [Motrin] 600 mg PO Q6 #20 tab Instructions: Deep Vein Thrombosis (Blood Clots in the Legs) Forms: [facility] (Estonian) - Clinical Impression Clinical Impression: Deep venous thrombosis of lower extremity, DVT (deep venous thrombosis) - PA / DYNAMITE CARTRIDGE CRIMPER / Resident Statement / has reviewed & agrees with the documentation as recorded. - Scribe Statement The provider has reviewed the documentation as recorded by the Dorothea Jean Do All medical record entries made by the Mannibheriberto were at my direction and personally dictated by me. I have reviewed the chart and agree that the record accurately reflects my personal performance of the history, physical exam, medical decision making, and the department course for this patient. I have also personally directed, reviewed, and agree with the discharge instructions and disposition.
[2018-04-01] MEDS ORDERED: Sodium Chloride 0.9% 1,000 ML ONE (17:59)
[2018-04-01 18:02] LABS: BASO # 0.1 K/uL (0.0-0.2); BASO % 0.7 % (0.0-2.0); EOS # 0.1 K/uL (0.0-0.7); EOS % 1.1 % (0.0-4.0); HEMOGLOBIN 12.8 g/dL (12.0-18.0); LYMPH # 1.6 K/uL (1.0-4.3); LYMPH % 12.4 % (20.0-40.0); MEAN CELL VOLUME 69.5 fL (80.0-94.0); MEAN CORPUSCULAR HEMOGLOBIN 22.7 pg (27.0-31.0); MEAN CORPUSCULAR HGB CONC 32.7 g/dL (33.0-37.0); MEAN PLATELET VOLUME 7.4 fL (7.2-11.7); MONO % 7.6 % (0.0-10.0); NEUT # 9.9 K/uL (1.8-7.0); NEUT % 78.2 % (50.0-75.0); RBC 5.65 Mil/uL (4.40-5.90); RED CELL DISTRIBUTION WIDTH 14.2 % (11.5-14.5)
[2018-04-01 18:14] LABS: WHITE BLOOD COUNT 12.7 K/uL (4.8-10.8)
[2018-04-01 18:18] LABS: ALB/GLOB RATIO 1.2 (1.0-2.1); ALBUMIN 4.1 g/dL (3.5-5.0); ALT/SGPT 55 U/L (21-72); AST/SGOT 57 U/L (17-59); BLOOD UREA NITROGEN 14 mg/dL (9-20); CALCIUM 9.4 mg/dl (8.6-10.4); GFR NON-AFRICAN AMERICAN > 60
[2018-04-01 18:26] VITALS: BP 135/78; PULSE 78; RESP 16; TEMP 98.8
[2018-04-01] MEDS ORDERED: Enoxaparin 80 mg Syringe SC STA (18:35)
[2018-04-01] MEDS ORDERED: Enoxaparin 80 mg Syringe ONE (18:49)
== END 2018-04-01 19:06 | disposition home or self-care (01) ==
LOC: C.ER 15:30
DX: I82.409 Acute embolism and thrombosis of unspecified deep veins of unspecified lower extremity (principal); I10 Essential (primary) hypertension; E78.00 Pure hypercholesterolemia, unspecified
CPT/HCPCS: 80053; 85025; 96361; 96372; 96374; 99284; J1650; J1885; J7030

== ENCOUNTER 2018-04-02 10:50 | Observation (INO) | payer OTHER ==
[2018-04-02] MEDS ORDERED: Enoxaparin 40 mg Syringe SC STA (13:01)
[2018-04-02 13:07] LABS: PH,URINE 6.5 (5.0-8.0); SQUAMOUS EPITHIAL < 1 /hpf (0-5); URINE BILIRUBIN NEGATIVE (NEGATIVE); URINE BLOOD NEGATIVE (NEGATIVE); URINE CLARITY Clear (Clear); URINE COLOR YELLOW (YELLOW); URINE GLUCOSE (UA) 3+ mg/dL (Normal); URINE LEUKOCYTE ESTERASE NEGATIVE Leu/uL (Negative); URINE PROTEIN NEGATIVE (NEGATIVE); URINE UROBILINOGEN 0.2 mg/dL (0.2-1.0)
[2018-04-02] MEDS ORDERED: Sodium Chloride 0.9% 1,000 ML IV ONE (13:10)
[2018-04-02] MEDS ORDERED: Sodium Chloride 0.9% 1,000 ML ONE (13:32)
[2018-04-02] MEDS ORDERED: Enoxaparin 80 mg Syringe ONE (13:32)
[2018-04-02 13:36] LABS: BASO # 0.1 K/uL (0.0-0.2); BASO % 0.7 % (0.0-2.0); EOS # 0.1 K/uL (0.0-0.7); EOS % 1.3 % (0.0-4.0); HEMOGLOBIN 12.5 g/dL (12.0-18.0); LYMPH # 1.5 K/uL (1.0-4.3); LYMPH % 17.4 % (20.0-40.0); MEAN CELL VOLUME 69.8 fL (80.0-94.0); MEAN CORPUSCULAR HEMOGLOBIN 22.4 pg (27.0-31.0); MEAN PLATELET VOLUME 8.1 fL (7.2-11.7); MONO # 0.6 K/uL (0.0-0.8); MONO % 7.1 % (0.0-10.0); NEUT # 6.5 K/uL (1.8-7.0); NEUT % 73.5 % (50.0-75.0); RBC 5.58 Mil/uL (4.40-5.90); RED CELL DISTRIBUTION WIDTH 14.3 % (11.5-14.5); WHITE BLOOD COUNT 8.9 K/uL (4.8-10.8)
--- NOTE | 2018-04-02 13:37 | C.PDOC ---
History Of Present Illness 57 year old male with PMHx of DM, HTN, and hypercholesterolemia, presents to the ED with complaints of left leg pain x 2 weeks. States he noticed the symptoms during recent trip to [facility]. When he returned home on 03/25/18, patient noticed the swelling and pain increased. He notes symptoms seem worse with weight bearing. Notes mild improvement after the medication they gave me last night. He denies prior history of blood clots. Otherwise patient denies any chest pain, trauma, change in sensation, fever or SOB. Time Seen by Provider: 04/02/18 11:21 Chief Complaint (Nursing): Medical Clearance History Per: Patient History/Exam Limitations: no limitations Onset/Duration Of Symptoms: Days Current Symptoms Are (Timing): Still Present Reports Recently: Seen In ED Past Medical History Reviewed: Historical Data, Nursing Documentation, Vital Signs Vital Signs: Last Vital Signs Temp 97.8 F 04/02/18 15:30 Pulse 73 04/02/18 15:30 Resp 20 04/02/18 15:30 BP 143/83 04/02/18 15:30 Pulse Ox 98 04/02/18 15:30 - Medical History PMH: Diabetes (type II), HTN, Hypercholesterolemia Denies: Chronic Kidney Disease Other Surgeries: Left shoulder surgery Family History: States: No Known Family Hx - Social History Hx Tobacco Use: No Hx Alcohol Use: No Hx Substance Use: No - Immunization History Hx Tetanus Toxoid Vaccination: No Hx Influenza Vaccination: No Hx Pneumococcal Vaccination: No Review Of Systems Except As Marked, All Systems Reviewed And Found Negative. Constitutional: Negative for: Fever Cardiovascular: Negative for: Chest Pain, Palpitations Respiratory: Negative for: Cough, Shortness of Breath Musculoskeletal: Positive for: Leg Pain (left calf pain and swelling). Negative for: Foot Pain, Other (knee pain) Neurological: Negative for: Weakness, Numbness, Incoordination Physical Exam - Physical Exam Appears: Non-toxic, No Acute Distress Skin: Warm, Dry Head: Atraumatic, Normacephalic Eye(s): bilateral: Normal Inspection, EOMI Nose: Normal Oral Mucosa: Moist Neck: Normal ROM, Supple Chest: Symmetrical Cardiovascular: Rhythm Regular Respiratory: Normal Breath Sounds, No Rales, No Rhonchi, No Wheezing Gastrointestinal/Abdominal: Soft, No Tenderness Extremity: Normal ROM, Tenderness (to medial aspect of left thigh and calf tenderness), Swelling (to left calf), Other (medial aspect of left thigh appears indurated) Extremity: Bilateral: Normal Color And Temperature Pulses: Left Dorsalis Pedis: Normal, Right Dorsalis Pedis: Normal Neurological/Psych: Oriented x3, Normal Speech, Normal Motor, Normal Sensation ED Course And Treatment - Laboratory Results Result Diagrams: 04/02/18 13:25 04/02/18 13:25 O2 Sat by Pulse Oximetry: 99 (RA) Pulse Ox Interpretation: Normal - CT Scan/US Doppler US Other Rad Studies (CT/US): Read By Radiologist, Radiology Report Reviewed CT/US Interpretation: (+) popliteal DVT to left lower extremity Progress Note: Doppler US ordered to evaluate bilateral lower extremities for DVT. Records reviewed, patient was seen here last night and treated with Lovenox. Ultrasound is positive for DVT in popliteal vein. Ordered 80mg SC Lovenox and IV fluids. Blood work and urine sent. - Physician Consult Information Time Consulting Physician Contacted: 13:00 Physician Contacted: Meagan Larsen Outcome Of Conversation: Agrees with management and accepts patient for admission Disposition Counseled Patient/Family Regarding: Studies Performed, Diagnosis - Disposition Disposition: HOSPITALIZED Disposition Time: 13:04 Condition: STABLE - POA Present On Arrival: Deep Vein Thrombosis / PE - Clinical Impression Clinical Impression: DVT (deep venous thrombosis) - PA / MATERIAL CONTROL CLERK / Resident Statement MD/DO has reviewed & agrees with the documentation as recorded. - Scribe Statement The provider has reviewed the documentation as recorded by the Scribe (Ashlee Bal) All medical record entries made by the Scribe were at my direction and personally dictated by me. I have reviewed the chart and agree that the record accurately reflects my personal performance of the history, physical exam, medical decision making, and the department course for this patient. I have also personally directed, reviewed, and agree with the discharge instructions and disposition.
[2018-04-02 13:43] LABS: INR 1.1; PROTHROMBIN TIME 11.9 SECONDS (9.7-12.2)
[2018-04-02 13:51] LABS: ALB/GLOB RATIO 1.1 (1.0-2.1); ALBUMIN 3.8 g/dL (3.5-5.0); ALT/SGPT 55 U/L (21-72); AST/SGOT 38 U/L (17-59); BLOOD UREA NITROGEN 11 mg/dL (9-20); CALCIUM 9.1 mg/dl (8.6-10.4); GFR NON-AFRICAN AMERICAN > 60
--- NOTE | 2018-04-02 14:08 | VASCLAB ---
Date of service: 04/02/2018 PROCEDURE: Lower Extremity Venous Duplex Exam. HISTORY: pain PRIORS: None. TECHNIQUE: Bilateral common femoral, femoral, popliteal and posterior tibial, peroneal and great saphenous veins were evaluated. Flow was assessed with color Doppler, compressibility, assessment of phasic flow and augmentation response. Report prepared by JACQUELYN Mead, RVT FINDINGS: RIGHT: 1. Common Femoral Vein: 1.1. Compressibility - Fully compressible: Thrombus - None : Flow - Phasic: Augmentation -Normal: Reflux - None. 2. Femoral Vein: 2.1. Compressibility - Fully compressible: Thrombus - None : Flow - Phasic: Augmentation -Normal: Reflux - None. 3. Popliteal Vein: 3.1. Compressibility - Fully compressible: Thrombus - None : Flow - Phasic: Augmentation -Normal: Reflux - None. 4. Posterior Tibial Vein: 4.1. Compressibility - Fully compressible: Thrombus - None: Flow - Phasic: Augmentation -Normal: Reflux - None. 5. Peroneal Vein: 5.1. Compressibility - Fully compressible: Thrombus - None: Flow - Phasic: Augmentation -Normal: Reflux - None. 6. Great Saphenous Vein: 6.1. Compressibility - Fully compressible: Thrombus - None: Flow - Phasic: Augmentation - Normal: Reflux - None. LEFT: 1. Common Femoral Vein: 1.1. Compressibility - Fully compressible: Thrombus - None: Flow - Phasic: Augmentation -Normal: Reflux - None. 2. Femoral Vein: 2.1. Compressibility - Fully compressible: Thrombus - None: Flow - Phasic: Augmentation -Normal: Reflux - None. 3. Popliteal Vein: 3.1. Compressibility - Partial: Thrombus - Acute : Flow - Reduced : Augmentation -Reduced: Reflux - None. 4. Posterior Tibial Vein: 4.1. Compressibility - Fully compressible: Thrombus - None: Flow - Phasic: Augmentation -Normal: Reflux - None. 5. Peroneal Vein: 5.1. Compressibility - Fully compressible: Thrombus - None: Flow - Phasic: Augmentation -Normal: Reflux - None. 6. Great Saphenous Vein: 6.1. Compressibility - Fully compressible: Thrombus - None: Flow - Phasic: Augmentation - Normal: Reflux - None. OTHER FINDINGS: BECKY Howard notified about the findings. IMPRESSION: Right: No evidence of deep or superficial vein thrombosis of the right lower extremity. Normal valve function noted of the right side. Left: Acute thrombosis of the left popliteal vein with severe reduction of the venous return.
--- NOTE | 2018-04-02 14:29 | CP.PCM.PN ---
Subjective - Date & Time of Evaluation Date of Evaluation: 04/02/18 Time of Evaluation: 15:15 - Subjective Subjective: PGY 3 Progress Note- Dr. Larsen's service CC: leg pain 57 year old male with past medical history significant for HTN, Hypercholesterolemia and Diabetes presents with complaints of left lower extremity tenderness. Patient states that he recently traveled to [facility] with his family from February 24 to March 25. He states that the flight was approximately 3 hours [address] each way. He states that he was often in the car for upwards of hours at a time while away. He states that approx 4-5 days after arriving- he began experiencing pain and swelling of his left lower extremity just above the posterior aspect of his knee. Patient states that he has never had any blood clots before. He denies any family history significant for blood disorders. He denies chest pain, shortness of breath, feeling lightheaded, palpitations, nausea at this time. PMHx- refer to above PSHx- Left shoulder surgery approx 10 years ago Fam Hx- denies blood dyscrasias, cancers Medications- Hydralazine 50 mg PO TID, Exforge 10-320 mg daily, Metformin 1000mg BID, Toprol XL 50 mg daily, Lipitor 50 mg HS, Januvia 50mg daily Social- Denies tobacco, alcohol or illicit drug use Allergies- NKDA PMD- Dr. Larsen Objective - Vital Signs/Intake and Output Vital Signs (last 24 hours): Temp Pulse Resp BP Pulse Ox 98.9 F 73 17 149/82 98 04/02/18 13:51 04/02/18 13:51 04/02/18 13:51 04/02/18 13:51 04/02/18 13:51 - Labs Labs: 04/02/18 13:25 04/02/18 13:25 PT 11.9 SECONDS (9.7-12.2) 04/02/18 13:25 INR 1.1 04/02/18 13:25 APTT 31 SECONDS (21-34) 04/02/18 13:25 - Constitutional Appears: Non-toxic, No Acute Distress - Head Exam Head Exam: ATRAUMATIC, NORMAL INSPECTION - Eye Exam Eye Exam: EOMI, Normal appearance, PERRL Pupil Exam: NORMAL ACCOMODATION - ENT Exam ENT Exam: Mucous Membranes Moist - Neck Exam Neck Exam: Full ROM - Respiratory Exam Respiratory Exam: NORMAL BREATHING PATTERN. absent: Wheezes - Cardiovascular Exam Cardiovascular Exam: REGULAR RHYTHM, +S1, +S2, Murmur. absent: Tachycardia - GI/Abdominal Exam GI & Abdominal Exam: Soft, Normal Bowel Sounds - Extremities Exam Extremities Exam: Full ROM, Pedal Edema (trace), Tenderness (superior to popliteal fossa) - Back Exam Back Exam: Full ROM, NORMAL INSPECTION - Neurological Exam Neurological Exam: Alert, Awake, CN II-XII Intact, Normal Gait, Oriented x3 - Psychiatric Exam Psychiatric exam: Normal Affect, Normal Mood - Skin Skin Exam: Dry, Normal Color, Warm (left warmer than right) Assessment and Plan (1) DVT (deep venous thrombosis) Assessment & Plan: Venous Dopplers show positive DVT in left popliteal vein with severe reduction of venous return. Refer to complete report. History of recent long distance travel. No known family history. On Lovenox 80 SC Q12 F/U EKG F/U Hypercoaguable workup Percocet PRN for pain relief No clinical signs and symptoms of dyspnea, chest pain or palpitations. Status: Acute (2) Hyperlipidemia Assessment & Plan: On Crestor HS Status: Acute (3) Diabetes mellitus Assessment & Plan: ISS Hypoglycemia protocol in place Januvia Hold off on administering Metformin at this time Status: Acute (4) Hypertension Assessment & Plan: Ex-forge PAYTON here. (Amlodipine-Valsartan combination) Will administer Amlodipine 10 mg at this time. May require ARB therapy but monitor for now Continue Hydralazine 50 mg PO Q8 and Toprol XL 50 mg daily Monitor closely Status: Acute (5) Prophylactic measure Assessment & Plan: Lovenox 80 mg SC Q12 Ambulate as tolerated No GI prophylaxis indicated at this time. Status: Acute
[2018-04-02] MEDS ORDERED: Glucagon Recombinant 1 mg Inj IM PRN (16:45)
[2018-04-02] MEDS ORDERED: Dextrose 50% SYRINGE Inj (50 ml) IV PRN (16:45)
[2018-04-02] MEDS: Enoxaparin 80 mg Syringe SC SCH (17:45)
[2018-04-02] MEDS ORDERED: Home Med 1 UNIT (Metformin [Glucophage] 1,000 MG) PO SCH (18:00)
[2018-04-02 20:04] LABS: INR 1.1; PROTHROMBIN TIME 11.6 SECONDS (9.7-12.2)
[2018-04-02] MEDS: (Novolog) Insulin Aspart, Recombinant 100 u/ml 10 ml vial SC SCH (21:50)
[2018-04-03] MEDS: Enoxaparin 80 mg Syringe SC SCH (05:45)
[2018-04-03 07:19] LABS: BASO # 0.1 K/uL (0.0-0.2); BASO % 0.9 % (0.0-2.0); EOS # 0.2 K/uL (0.0-0.7); EOS % 3.1 % (0.0-4.0); HEMOGLOBIN 11.7 g/dL (12.0-18.0); LYMPH # 1.5 K/uL (1.0-4.3); LYMPH % 23.5 % (20.0-40.0); MEAN CELL VOLUME 69.4 fL (80.0-94.0); MEAN CORPUSCULAR HGB CONC 31.7 g/dL (33.0-37.0); MEAN PLATELET VOLUME 8.1 fL (7.2-11.7); MONO # 0.5 K/uL (0.0-0.8); MONO % 7.2 % (0.0-10.0); NEUT # 4.2 K/uL (1.8-7.0); NEUT % 65.3 % (50.0-75.0); RBC 5.32 Mil/uL (4.40-5.90); RED CELL DISTRIBUTION WIDTH 14.6 % (11.5-14.5); WHITE BLOOD COUNT 6.4 K/uL (4.8-10.8)
[2018-04-03 07:32] LABS: ALB/GLOB RATIO 1.1 (1.0-2.1); ALBUMIN 3.5 g/dL (3.5-5.0); ALT/SGPT 47 U/L (21-72); AST/SGOT 18 U/L (17-59); BLOOD UREA NITROGEN 14 mg/dL (9-20); CALCIUM 8.6 mg/dl (8.6-10.4); GFR NON-AFRICAN AMERICAN > 60
[2018-04-03 07:50] VITALS: RESP 20
[2018-04-03] MEDS: (Novolog) Insulin Aspart, Recombinant 100 u/ml 10 ml vial SC SCH ×4 (07:56→21:41)
[2018-04-03] MEDS ORDERED: Metoprolol Succinate 50 mg XL Tab PO SCH (10:00)
[2018-04-03] MEDS: Multiple Vitamins Tab PO SCH (11:14)
[2018-04-03] MEDS: Metoprolol Succinate 50 mg XL Tab PO SCH (11:14)
[2018-04-03] MEDS: Oxycodone/Acetaminophen 5/325 mg Tab PO PRN ×3 (11:15→21:43)
--- NOTE | 2018-04-03 14:21 | CP.PCM.PN ---
Subjective - Date & Time of Evaluation Date of Evaluation: 04/03/18 Time of Evaluation: 14:17 - Subjective Subjective: Progress Note- Dr. Larsen's service Pt seen and examined at bedside. He continues have tenderness in the left lower extremity. He is otherwise well. No acute events overnight. Afebrile. Objective - Vital Signs/Intake and Output Vital Signs (last 24 hours): Temp Pulse Resp BP Pulse Ox 98.4 F 92 H 20 131/88 99 04/03/18 07:00 04/03/18 11:12 04/03/18 07:00 04/03/18 11:12 04/03/18 11:24 - Medications Medications: Current Medications Amlodipine Besylate (Norvasc) 10 mg PO DAILY [facility] Last Admin: 04/03/18 11:14 Dose: 10 mg Dextrose (Dextrose 50% Inj) 0 ml IV STAT PRN; Protocol PRN Reason: Hypoglycemia Protocol Dextrose (Glutose 15) 0 gm PO ONCE PRN; Protocol PRN Reason: Hypoglycemia Protocol Enoxaparin Sodium (Lovenox) 80 mg SC Q12H [facility] Last Admin: 04/03/18 05:45 Dose: 80 mg Glucagon (Glucagen Diagnostic Kit) 0 mg IM STAT PRN; Protocol PRN Reason: Hypoglycemia Protocol Hydralazine HCl (Apresoline) 50 mg PO Q8 [facility] Last Admin: 04/03/18 05:44 Dose: 50 mg Dextrose (Dextrose 5% In Water 1000 Ml) 1,000 mls @ 0 mls/hr IV .Q0M PRN; Protocol; Per Protocol PRN Reason: Hypoglycemia Protocol Insulin Aspart (Novolog) 0 unit SC ACHS [facility] PRN Reason: Protocol Last Admin: 04/03/18 12:25 Dose: 3 unit Losartan Potassium (Cozaar) 100 mg PO DAILY [facility] Last Admin: 04/03/18 11:15 Dose: 100 mg Metformin HCl (Glucophage) 1,000 mg PO BID [facility] Metoprolol Succinate (Toprol Xl) 50 mg PO DAILY [facility] Last Admin: 04/03/18 11:14 Dose: 50 mg Multivitamins (Hexavitamin) 1 tab PO DAILY [facility] Last Admin: 04/03/18 11:14 Dose: 1 tab Oxycodone/Acetaminophen (Percocet 5/325 Mg Tab) 1 tab PO Q4H PRN PRN Reason: Pain, moderate (4-7) Stop: 04/05/18 16:11 Last Admin: 04/03/18 11:15 Dose: 1 tab Rosuvastatin Calcium (Crestor) 20 mg PO HS [facility] Last Admin: 04/02/18 21:55 Dose: 20 mg Sitagliptin Phosphate (Januvia) 50 mg PO BID [facility] Last Admin: 04/03/18 11:14 Dose: 50 mg - Labs Labs: 04/03/18 07:01 04/03/18 07:01 PT 11.6 SECONDS (9.7-12.2) 04/02/18 19:31 INR 1.1 04/02/18 19:31 APTT 41 SECONDS (21-34) H D 04/02/18 19:31 - Constitutional Appears: No Acute Distress - Head Exam Head Exam: ATRAUMATIC, NORMOCEPHALIC - Eye Exam Eye Exam: EOMI, Normal appearance - ENT Exam ENT Exam: Mucous Membranes Moist - Respiratory Exam Respiratory Exam: Clear to Ausculation Bilateral, NORMAL BREATHING PATTERN - Cardiovascular Exam Cardiovascular Exam: REGULAR RHYTHM, +S1, +S2 - GI/Abdominal Exam GI & Abdominal Exam: Soft. absent: Tenderness - Extremities Exam Additional comments: LLE mild swelling and tenderness - Neurological Exam Neurological Exam: Alert, Awake, Oriented x3 - Psychiatric Exam Psychiatric exam: Normal Affect, Normal Mood - Skin Skin Exam: Dry, Warm Assessment and Plan - Assessment and Plan (Free Text) Plan: DVT (deep venous thrombosis) Venous Dopplers show positive DVT in left popliteal vein with severe reduction of venous return. Refer to complete report. History of recent long distance travel. No known family history. On Lovenox 80 SC Q12 04/03/18 Transition to Xarelto 15mg PO BID x 2 weeks; Then 20mg PO QD EKG- f/u official read Hypercoaguable workup- f/u Percocet 1T PO q4hrs PRN for pain relief No clinical signs and symptoms of dyspnea, chest pain or palpitations Hyperlipidemia Crestor 20mg PO QHS Diabetes mellitus ISS Hypoglycemia protocol in place Januvia 50mg PO BID Metformin 1g PO BID Hold off on administering Metformin at this time Hypertension Ex-forge NF here. (Amlodipine-Valsartan combination) Losartan 100mg PO QD, Hydralazine 50 mg PO Q8 and Toprol XL 50 mg daily Monitor closely Prophylactic measure Lovenox 80 mg SC Q12 Ambulate as tolerated No GI prophylaxis indicated at this time Case discussed with Dr. Larsen All medical management as per Dr. Larsen
--- NOTE | 2018-04-04 01:58 | CARD ---
APPROVED REPORT Date of service: 04/02/2018 EKG Measurement Heart [id number] <Conclusion> Normal sinus rhythm Minimal voltage criteria for LVH, may be normal variant Borderline ECG
--- NOTE | 2018-04-04 07:01 | HP ---
Copied To: Meagan Larsen MD Attending MD: Meagan Larsen MD HISTORY OF PRESENT ILLNESS: A 57-year-old male and has complaint of left leg swelling. The patient traveled to [facility], came back four days ago. 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 PHYSICAL EXAMINATION: GENERAL: The patient is awake, alert, oriented. VITAL SIGNS: Temperature 98, pulse 90. HEENT: Normal limits. NECK: Supple. CHEST: Symmetrical. HEART: Regular. ABDOMEN: Soft. EXTREMITIES: Left leg swollen and tender. ASSESSMENT AND PLAN: The patient suffered acute deep vein thrombosis. The patient to get Lovenox, Xarelto. Meagan Larsen MD
[2018-04-04 08:11] VITALS: TEMP 98.2; O2SAT 98
[2018-04-04] MEDS: (Novolog) Insulin Aspart, Recombinant 100 u/ml 10 ml vial SC SCH ×2 (08:14→12:25)
[2018-04-04 08:29] LABS: BASO % 0.4 % (0.0-2.0); EOS # 0.2 K/uL (0.0-0.7); EOS % 2.9 % (0.0-4.0); HEMOGLOBIN 12.4 g/dL (12.0-18.0); LYMPH # 1.5 K/uL (1.0-4.3); LYMPH % 27.5 % (20.0-40.0); MEAN CELL VOLUME 69.3 fL (80.0-94.0); MEAN CORPUSCULAR HEMOGLOBIN 22.6 pg (27.0-31.0); MEAN CORPUSCULAR HGB CONC 32.6 g/dL (33.0-37.0); MEAN PLATELET VOLUME 7.8 fL (7.2-11.7); MONO # 0.5 K/uL (0.0-0.8); MONO % 9.3 % (0.0-10.0); NEUT # 3.2 K/uL (1.8-7.0); NEUT % 59.9 % (50.0-75.0); NRBC % 0.2 % (0.0-2.0); RBC 5.48 Mil/uL (4.40-5.90); RED CELL DISTRIBUTION WIDTH 14.4 % (11.5-14.5); WHITE BLOOD COUNT 5.3 K/uL (4.8-10.8)
[2018-04-04 09:21] LABS: ALB/GLOB RATIO 1.1 (1.0-2.1); ALBUMIN 3.5 g/dL (3.5-5.0); ALT/SGPT 31 U/L (21-72); AST/SGOT 16 U/L (17-59); BLOOD UREA NITROGEN 13 mg/dL (9-20); CALCIUM 8.3 mg/dl (8.6-10.4); GFR NON-AFRICAN AMERICAN > 60
--- NOTE | 2018-04-04 09:26 | CP.PCM.PN ---
Subjective - Date & Time of Evaluation Date of Evaluation: 04/04/18 Time of Evaluation: 07:55 - Subjective Subjective: PGY3 Resident - Medicine Progress Note Patient seen and examined at bedside. No acute distress. No overnight events. He continues have tenderness in the left lower extremity, however the swelling has resolved. 12-point review of systems is otherwise negative without any additional acute complaints. -- Patient is stable for discharge per Dr. Larsen. Patient should resume all medications as outlined in this document. Additionally, patient should take the new medications listed below (scripts provided). Please make an appointment and follow up with your Primary Doctor within one week of discharge. Patient should return to ED immediately if symptoms return or worsen. Instructions discussed with patient who understood and agreed. Newly prescribed medications: Xarelto 15mg PO BID #20 - take this medication for the first 20 days. Xarelto 20mg PO daily #70 - take this medication after you finish 20 days of Xarelto 15mg twice daily. You will take this medication for 9 weeks. Crestor 20mg PO HS #30 Objective - Vital Signs/Intake and Output Vital Signs (last 24 hours): Temp Pulse Resp BP Pulse Ox 98.2 F 60 20 138/75 98 04/04/18 07:00 04/04/18 07:00 04/04/18 07:00 04/04/18 07:00 04/04/18 07:00 - Medications Medications: Current Medications Amlodipine Besylate (Norvasc) 10 mg PO DAILY [facility] Last Admin: 04/03/18 11:14 Dose: 10 mg Dextrose (Dextrose 50% Inj) 0 ml IV STAT PRN; Protocol PRN Reason: Hypoglycemia Protocol Dextrose (Glutose 15) 0 gm PO ONCE PRN; Protocol PRN Reason: Hypoglycemia Protocol Glucagon (Glucagen Diagnostic Kit) 0 mg IM STAT PRN; Protocol PRN Reason: Hypoglycemia Protocol Hydralazine HCl (Apresoline) 50 mg PO Q8 [facility] Last Admin: 04/04/18 06:08 Dose: 50 mg Dextrose (Dextrose 5% In Water 1000 Ml) 1,000 mls @ 0 mls/hr IV .Q0M PRN; Protocol; Per Protocol PRN Reason: Hypoglycemia Protocol Insulin Aspart (Novolog) 0 unit SC ACHS [facility] PRN Reason: Protocol Last Admin: 04/04/18 08:14 Dose: Not Given Losartan Potassium (Cozaar) 100 mg PO DAILY [facility] Last Admin: 04/03/18 11:15 Dose: 100 mg Metformin HCl (Glucophage) 1,000 mg PO BID [facility] Metoprolol Succinate (Toprol Xl) 50 mg PO DAILY [facility] Last Admin: 04/03/18 11:14 Dose: 50 mg Multivitamins (Hexavitamin) 1 tab PO DAILY [facility] Last Admin: 04/03/18 11:14 Dose: 1 tab Oxycodone/Acetaminophen (Percocet 5/325 Mg Tab) 1 tab PO Q4H PRN PRN Reason: Pain, moderate (4-7) Stop: 04/05/18 16:11 Last Admin: 04/03/18 21:43 Dose: 1 tab Rivaroxaban (Xarelto) 15 mg PO BID [facility] Last Admin: 04/03/18 18:21 Dose: 15 mg Rosuvastatin Calcium (Crestor) 20 mg PO HS [facility] Last Admin: 04/03/18 21:43 Dose: 20 mg Sitagliptin Phosphate (Januvia) 50 mg PO BID [facility] Last Admin: 04/03/18 21:44 Dose: 50 mg - Labs Labs: 04/04/18 08:14 04/04/18 08:14 PT 11.6 SECONDS (9.7-12.2) 04/02/18 19:31 INR 1.1 04/02/18 19:31 APTT 41 SECONDS (21-34) H D 04/02/18 19:31 - Additional Findings Additional findings: - Constitutional Appears: No Acute Distress - Head Exam Head Exam: ATRAUMATIC, NORMOCEPHALIC - Eye Exam Eye Exam: EOMI, Normal appearance - ENT Exam ENT Exam: Mucous Membranes Moist - Respiratory Exam Respiratory Exam: Clear to Ausculation Bilateral, NORMAL BREATHING PATTERN - Cardiovascular Exam Cardiovascular Exam: REGULAR RHYTHM, +S1, +S2 - GI/Abdominal Exam GI & Abdominal Exam: Soft. absent: Tenderness - Extremities Exam Additional comments: LLE mild tenderness; Swelling has resolved. - Neurological Exam Neurological Exam: Alert, Awake, Oriented x3 - Psychiatric Exam Psychiatric exam: Normal Affect, Normal Mood - Skin Skin Exam: Dry, Warm Assessment and Plan - Assessment and Plan (Free Text) Assessment: DVT (deep venous thrombosis) Venous Dopplers show positive DVT in left popliteal vein with severe reduction of venous return. Refer to complete report. History of recent long distance travel. No known family history. On Lovenox 80 SC Q12 04/03/18 Transition to Xarelto 15mg PO BID x 20 days; Then 20mg PO QD for a total of 3 months of treatment. EKG- f/u official read Hypercoaguable workup- f/u Percocet 1T PO q4hrs PRN for pain relief No clinical signs and symptoms of dyspnea, chest pain or palpitations Hyperlipidemia Crestor 20mg PO QHS Diabetes mellitus ISS Hypoglycemia protocol in place Januvia 50mg PO BID Metformin 1g PO BID Hold off on administering Metformin at this time Hypertension Ex-forge NF here. (Amlodipine-Valsartan combination) Losartan 100mg PO QD, Hydralazine 50 mg PO Q8 and Toprol XL 50 mg daily Monitor closely Prophylactic measure Lovenox 80 mg SC Q12 Ambulate as tolerated No GI prophylaxis indicated at this time Case discussed with Dr. Larsen. All medical management as per Dr. Larsen -- Patient is stable for discharge per Dr. Larsen. Patient should resume all medications as outlined in this document. Additionally, patient should take the new medications listed below (scripts provided). Please make an appointment and follow up with your Primary Doctor within one week of discharge. Patient should return to ED immediately if symptoms return or worsen. Instructions discussed with patient who understood and agreed. Newly prescribed medications: Xarelto 15mg PO BID #20 - take this medication for the first 20 days. Xarelto 20mg PO daily #70 - take this medication after you finish 20 days of Xarelto 15mg twice daily. You will take this medication for 9 weeks. Crestor 20mg PO HS #30
[2018-04-04] MEDS: Metoprolol Succinate 50 mg XL Tab PO SCH (10:54)
[2018-04-04] MEDS: Multiple Vitamins Tab PO SCH (10:54)
[2018-04-04 13:09] VITALS: BP 139/75; PULSE 71
[2018-04-04] MEDS: Oxycodone/Acetaminophen 5/325 mg Tab PO PRN (14:18)
== END 2018-04-04 15:50 | disposition home or self-care (01) ==
LOC: C.ER 10:50 → C.9E 13:04 → C.5S 15:01
PROVIDERS: ADMIT Internal Medicine Pulmonary Disease; ATTEND Internal Medicine Pulmonary Disease
DX: I82.432 Acute embolism and thrombosis of left popliteal vein (principal); E11.9 Type 2 diabetes mellitus without complications; E78.00 Pure hypercholesterolemia, unspecified; I10 Essential (primary) hypertension
CPT/HCPCS: 36415; 80053; 81001; 81241; 82948; 83735; 84100; 85025; 85300; 85303; 85306; 85610; 85730; 87086; 93005; 93970; 96360; 96372; 99283; G0378; J1650; J7030; J7070

== ENCOUNTER 2018-06-19 19:21 | Emergency (ER) | payer OTHER ==
[2018-06-19 19:35] VITALS: RESP 20
--- NOTE | 2018-06-19 19:47 | C.PDOC ---
History Of Present Illness 57 year old male with a Hx of DVT on Xarelto presents to the ER after he began feeling dizzy while watching TV [employer]. Denies fever, dark stools, melena, bloody stools, or other complaints. Time Seen by Provider: 06/19/18 19:40 Chief Complaint (Nursing): Dizziness/Lightheaded History Per: Patient History/Exam Limitations: no limitations Onset/Duration Of Symptoms: Hrs Current Symptoms Are (Timing): Still Present Activity At Onset Of Symptoms: Other (Watching TV) Associated Symptoms Preceding Syncopal Episode: No Predromal Symptoms (Sudden Onset) Seizure Or Post-ictal Symptoms: None Fall Associated With With Symptoms: No Recent travel outside of the [place]: No - Symptoms Of CVA Associated Symptoms: denies: Impaired Speech, Seizure Activity, New Vision Deficit(Left), New Vision Deficit(Right), Decreased Ability To Walk, New Confusion Past Medical History Reviewed: Historical Data, Nursing Documentation, Vital Signs Vital Signs: Last Vital Signs Temp 99.2 F 06/19/18 19:32 Pulse 75 06/19/18 19:32 Resp 20 06/19/18 19:32 BP 186/105 H 06/19/18 19:32 Pulse Ox 95 06/19/18 19:32 - Medical History PMH: Diabetes (type II), HTN, Hypercholesterolemia Denies: Chronic Kidney Disease Family History: States: Unknown Family Hx - Social History Hx Tobacco Use: No Hx Alcohol Use: No Hx Substance Use: No - Immunization History Hx Tetanus Toxoid Vaccination: No Hx Influenza Vaccination: No Hx Pneumococcal Vaccination: No Review Of Systems Constitutional: Negative for: Fever, Chills Cardiovascular: Negative for: Chest Pain, Palpitations Respiratory: Negative for: Cough, Shortness of Breath Gastrointestinal: Negative for: Abdominal Pain, Melena, Other (Dark stools, Bloody stools) Neurological: Positive for: Dizziness Physical Exam - Physical Exam Appears: Non-toxic Skin: Normal Color, Warm, Dry Head: Atraumatic, Normacephalic Eye(s): bilateral: Normal Inspection Oral Mucosa: Moist Neck: Normal, Supple Chest: Symmetrical, No Tenderness Cardiovascular: Rhythm Regular Respiratory: Normal Breath Sounds, No Rales, No Rhonchi, No Wheezing Gastrointestinal/Abdominal: Soft, No Tenderness Back: No CVA Tenderness Neurological/Psych: Oriented x3, Normal Speech ED Course And Treatment - Laboratory Results Result Diagrams: 06/19/18 19:50 06/19/18 19:50 ECG: Interpreted By Me, Viewed By Me ECG Rhythm: Sinus Rhythm ECG Interpretation: Normal Interpretation Of ECG: No ST/T wave changes Rate From EC O2 Sat by Pulse Oximetry: 95 (Room air) Pulse Ox Interpretation: Normal Medical Decision Making Medical Decision Making: dizziness ro cardiac metabolic infectous intracranial etiology e KG, blood work, and urinalysis ordered. labs ct neg neuro intact offered obs. pt declines asking for dc. refuses meclizine, states all symptoms resolve.d steady gait. Disposition - Disposition Referrals: [facility] [Outside] [facility] [Outside] Disposition: HOME/ ROUTINE Disposition Time: 21:00 Condition: STABLE Additional Instructions: return to er with worsening symptoms or concerns. you are declining observation in the hospital. Instructions: Dizziness, Nonvertigo, (DC) Forms: [employer] (Nepali) - Clinical Impression Clinical Impression: Dizziness - Scribe Statement The provider has reviewed the documentation as recorded by the Scribe Grant Jose All medical record entries made by the Scribe were at my direction and personally dictated by me. I have reviewed the chart and agree that the record accurately reflects my personal performance of the history, physical exam, medical decision making, and the department course for this patient. I have also personally directed, reviewed, and agree with the discharge instructions and disposition.
[2018-06-19 19:58] LABS: BASO # 0.1 K/uL (0.0-0.2); BASO % 1.1 % (0.0-2.0); EOS # 0.3 K/uL (0.0-0.7); EOS % 3.5 % (0.0-4.0); HEMOGLOBIN 13.4 g/dL (12.0-18.0); LYMPH % 39.5 % (20.0-40.0); MEAN CELL VOLUME 70.5 fL (80.0-94.0); MEAN CORPUSCULAR HEMOGLOBIN 22.5 pg (27.0-31.0); MEAN CORPUSCULAR HGB CONC 31.9 g/dL (33.0-37.0); MEAN PLATELET VOLUME 7.7 fL (7.2-11.7); MONO # 0.7 K/uL (0.0-0.8); MONO % 9.8 % (0.0-10.0); NEUT # 3.5 K/uL (1.8-7.0); NEUT % 46.1 % (50.0-75.0); NRBC % 0.1 % (0.0-2.0); RBC 5.95 Mil/uL (4.40-5.90); RED CELL DISTRIBUTION WIDTH 15.2 % (11.5-14.5); WHITE BLOOD COUNT 7.6 K/uL (4.8-10.8)
[2018-06-19 20:03] LABS: INR 1.2; PROTHROMBIN TIME 13.3 SECONDS (9.7-12.2)
[2018-06-19 20:09] LABS: ALB/GLOB RATIO 1.3 (1.0-2.1); ALBUMIN 4.2 g/dL (3.5-5.0); BLOOD UREA NITROGEN 17 mg/dL (9-20); CALCIUM 9.3 mg/dl (8.6-10.4); GFR NON-AFRICAN AMERICAN > 60
[2018-06-19 20:17] LABS: ALT/SGPT 19 U/L (21-72); AST/SGOT 25 U/L (17-59)
[2018-06-19 20:38] LABS: URINE BILIRUBIN NEGATIVE (NEGATIVE); URINE BLOOD NEGATIVE (NEGATIVE); URINE CLARITY Clear (Clear); URINE COLOR Yellow (YELLOW); URINE GLUCOSE (UA) NORMAL (Normal); URINE LEUKOCYTE ESTERASE NEG Leu/uL (Negative); URINE PROTEIN 1+ mg/dL (NEGATIVE); URINE UROBILINOGEN NORMAL mg/dL (0.2-1.0)
[2018-06-19 20:58] VITALS: BP 145/88; PULSE 73; TEMP 99
[2018-06-19 22:47] VITALS: O2SAT 95
--- NOTE | 2018-06-20 07:14 | CT ---
Date of service: 06/19/2018 PROCEDURE: CT HEAD WITHOUT CONTRAST. HISTORY: dizziness COMPARISON: None available. TECHNIQUE: Axial computed tomography images were obtained through the head/brain without intravenous contrast. Radiation dose: Total exam DLP = 1112.64 mGy-cm. This CT exam was performed using one or more of the following dose reduction techniques: Automated exposure control, adjustment of the mA and/or kV according to patient size, and/or use of iterative reconstruction technique. FINDINGS: HEMORRHAGE: No intracranial hemorrhage. BRAIN: No mass effect or edema. Scattered focal lucencies in the subcortical and periventricular white matter suggestive for chronic microvascular ischemic change. More confluent low attenuation seen within the left frontal subcortical white matter as demonstrated on series 2, image 25 which may represent some chronic ischemic change. VENTRICLES: Unremarkable. No hydrocephalus. CALVARIUM: Unremarkable. PARANASAL SINUSES: Unremarkable as visualized. No significant inflammatory changes. MASTOID AIR CELLS: Unremarkable as visualized. No inflammatory changes. OTHER FINDINGS: None. IMPRESSION: Chronic microvascular ischemic changes. More confluent low attenuation seen within the left frontal subcortical white matter as demonstrated on series 2, image 25 which may represent some chronic ischemic change. No acute intracranial abnormality. If focal neurologic deficit persists, consider correlation with MRI. A preliminary report was generated at 8:32 p.m. on 06/19/[address] Dariel Ingram from [facility].
--- NOTE | 2018-06-20 23:38 | CARD ---
APPROVED REPORT Date of service: 06/19/2018 EKG Measurement Heart [id number] <Conclusion> Normal sinus rhythm Minimal voltage criteria for LVH, may be normal variant Borderline ECG
== END 2018-06-19 21:00 | disposition home or self-care (01) ==
LOC: C.ER 19:21
DX: R42 Dizziness and giddiness (principal); E11.9 Type 2 diabetes mellitus without complications; E78.00 Pure hypercholesterolemia, unspecified; I10 Essential (primary) hypertension